=== PATIENT | female | born 1965 | race Two or more races ===

== ENCOUNTER → 2017-11-17 | Emergency (ER) | payer SELFPAY ==
[~2017-11-17] VITALS: Ht 160 cm; Wt 78.9 kg
[~2017-11-17] MED LIST: IBUPROFEN600 MG ORAL; LIDODERM700 M1 TOPIC; Methocarbamol 750mg tab ORAL ONE; ROBAXIN500 MG PO; traMADol 50mg tab ORAL ONE
[2017-11-17 12:45] VITALS: BP 130/75
--- NOTE | 2017-11-17 13:02 | Emergency Room Report ---
History of Present Illness General Chief Complaint: Lower Back Pain or Injury Source: Patient Present Illness HPI 52-year-old female presents emergency department complaining of 10 out of 10 in severity left-sided shoulder and flank/mid back pain status post mechanical slip and fall. She denies hitting her head she denies loss of consciousness. Patient denies bruising. Patient states pain is exacerbated upon bending forward slightly or with certain movements. Patient states that she gets a sharp pain that radiates down the left leg. Pain is also exacerbated with walking. Rest provides some relief. Denies dysuria, hematuria or frequency. Denies hx of frequent falls. Denies recent spinal procedures/injections, Fevers/ Chills, or hx of cancer. Denies numbness tingling or loss of sensation or gross motor movements of the extremities, incontinence of bowel or bladder. Denies CP , Palpitations, LOC, AMS, dizziness, Changes in Vision, weakness or a sudden severe headache. Allergies: Coded Allergies: No Known Allergies (Unverified , 11/17/17) Patient History Past Medical History: see triage record Past Surgical History: none Pertinent Family History: none Last Menstrual Period: NA Now: No Immunizations: UTD Reviewed Nursing Documentation: PMH: Agreed; PSxH: Agreed Nursing Documentation-PMH Past Medical History: No History, Except For Hx Diabetes: Yes - Pre Review of Systems All Other Systems: negative except mentioned in HPI Physical Exam Vital Signs Date Time Temp Pulse Resp B/P (MAP) Pulse Ox O2 Delivery O2 Flow Rate FiO2 11/17/17 12:34 98.2 72 18 130/75 99 Room Air 98.2 Sp02 EP Interpretation: reviewed, normal General Appearance: no apparent distress, alert, GCS 15, non-toxic Head: normocephalic, atraumatic Eyes: bilateral eye normal inspection, bilateral eye PERRL ENT: hearing grossly normal, normal voice Neck: full range of motion Respiratory: chest non-tender, lungs clear, normal breath sounds, speaking full sentences Cardiovascular #1: regular rate, rhythm, normal capillary refill Gastrointestinal: non tender, soft Genitourinary: normal inspection, no CVA tenderness Musculoskeletal: back normal, gait/station normal, normal range of motion, tender - TTP to musculature of the Left throacic paraspinal area, some midline TTp in T-spine, no midline neck or lumbar ttp. FROM. Pt. has TTp to the left trapezius radiating down to lateral shoulder , no obvious dislocation, no a/c step off. no clicking with ROM of the Left shoulder, some TTP laterally. Neurologic: alert, oriented x3, responsive, motor strength/tone normal, sensory intact, normal gait, speech normal, grossly normal Psychiatric: judgement/insight normal Skin: normal color, no rash, warm/dry, well hydrated Medical Decision Making PA Attestation Dr. rebolledo is my supervising Physician whom patient management has been discussed with. Diagnostic Impression: Primary Impression: Lumbar back sprain Qualified Codes: S33.5XXA - Sprain of ligaments of lumbar spine, initial encounter Additional Impressions: Strain of back Qualified Codes: S39.012A - Strain of muscle, fascia and tendon of lower back , initial encounter Muscle spasm of back Contusion of shoulder, left Qualified Codes: S40.012A - Contusion of left shoulder, initial encounter ER Course 52-year-old female presents emergency department complaining of 10 out of 10 in severity left-sided shoulder and flank/mid back pain status post mechanical slip and fall. She denies hitting her head she denies loss of consciousness. Patient denies bruising. Patient states pain is exacerbated upon bending forward slightly or with certain movements. Patient states that she gets a sharp pain that radiates down the left leg. Pain is also exacerbated with walking. Rest provides some relief. Denies dysuria, hematuria or frequency. Denies hx of frequent falls. Denies recent spinal procedures/injections, Fevers/ Chills, or hx of cancer. Denies numbness tingling or loss of sensation or gross motor movements of the extremities, incontinence of bowel or bladder. Denies CP , Palpitations, LOC, AMS, dizziness, Changes in Vision, weakness or a sudden severe headache. Ddx considered but are not limited to Fracture, dislocation, contusion, Sprain/ Strain/Spasm, Epidural abscess, Neoplastic mets,rotator cuff injury, a/c separation just to name a few. Vital signs: are WNL, pt. is afebrile H&PE are most consistent with musculoskeletal injury will perform imaging to r/ o fractures/dislocations. ORDERS: - X-ray's T spine (2 views) , and Left Shoulder ( 3 Views) - negative for fx , Dislocation, or significant soft tissue injury, per preliminary read in ED, and signed by MELODIE Chowdhury, my supervising physician has reviewed, and agrees with my interpretation. ED INTERVENTIONS: - Tramadol PO -Robaxin PO -Lidoderm patch TD DISCHARGE: At this time pt. is stable for d/c to home. Will provide printed patient care instructions, and any necessary prescriptions. Care plan and follow up instructions have been discussed with the patient prior to discharge. Other X-Ray Diagnostic Results Other X-Ray Diagnostic Results #1: X-Ray ordered: Left Shoulder # of Views/Limited Vs Complete: 3 View Indication: Pain EP Interpretation: Yes MELODIE Xray: Interpretation reviewed, by supervising MD, and agrees with findings. Interpretation: no dislocation, no soft tissue swelling, no fractures, nonspecific bowel gas Impression: No acute disease Electronically Signed by: Berta Chowdhury PA-C Other X-Ray Diagnostic Results #2: X-Ray ordered: T-Spine # of Views/Limited Vs Complete: 2 View Indication: Pain EP Interpretation: Yes MELODIE Xray: Interpretation reviewed, by supervising MD, and agrees with findings. Interpretation: no dislocation, no soft tissue swelling, no fractures Impression: No acute disease Electronically Signed by: Berta Chowdhury PA-C Last Vital Signs Date Time Temp Pulse Resp B/P (MAP) Pulse Ox O2 Delivery O2 Flow Rate FiO2 11/17/17 12:45 98.2 75 18 130/75 99 Room Air 98.2 Disposition: HOME, SELF-CARE Condition: Stable Scripts Ibuprofen* (MOTRIN*) 600 Mg Tablet 600 MG ORAL THREE TIMES A DAY, #20 TAB 0 Refills Prov: Berta Chowdhury 11/17/17 Lidocaine (Lidoderm) 1 Each Adh..patch 1 PATCH TOPIC DAILY, #30 PATCH 0 Refills Patch(es) may remain in place for up to 12 hours in any 24-hour period. Prov: Berta Chowdhury 11/17/17 Methocarbamol* (ROBAXIN*) 500 Mg Tablet 1000 MG PO TID, #42 TAB 0 Refills Prov: Berta Chowdhury 11/17/17 Patient Instructions: Contusion, [id number], Lumbosacral Strain Additional Instructions: Take medications as directed. Follow up with a Primary Care Provider in 3-5 days, even if your symptoms have resolved. --Please review list of primary care clinics, if you do not already have a primary care provider Return sooner to ED if new symptoms occur, or current symptoms become worse. Do not drink alcohol, drive, or operate heavy machinery while taking Robaxin as this may cause drowsiness. - Please note that this Emergency Department Report was dictated using [employer] transcriptionist technology software, occasionally this can lead to erroneous entry secondary to interpretation by the dictation equipment. Berta Chowdhury Nov 17, 2017 13:02
--- NOTE | 2017-11-17 13:38 | Diagnostic Imaging Report ---
Indication: Pain Technique: XRAY T Spine 2v Comparison: None Findings: Mild scoliosis of the lower thoracic/upper lumbar spine. No evidence of spondylolisthesis. No acute fracture. No compression fracture; vertebral body heights preserved. Minimal degenerative changes. Surgical clips project in the right upper quadrant. Imaged portions of the lungs grossly clear. Impression: No evidence of acute fracture or traumatic malalignment.
--- NOTE | 2017-11-17 13:41 | Diagnostic Imaging Report ---
Indication: Pain Technique: XRAY Shoulder Compl L Comparison: None Findings: No evidence of acute fracture or dislocation. Glenohumeral and acromioclavicular joints are preserved. Imaged portions of the left lung are clear. No radiopaque foreign body identified. Impression: No acute fracture or dislocation.
[2017-11-17 14:31] VITALS: BP 130/80
== END | disposition home or self-care (01) ==
LOC: EMR 14:41
DX: S33.5XXA Sprain of ligaments of lumbar spine, initial encounter (principal); S39.012A Strain of muscle, fascia and tendon of lower back, initial encounter; M62.830 Muscle spasm of back; S40.012A Contusion of left shoulder, initial encounter; W01.0XXA Fall on same level from slipping, tripping and stumbling without subsequent striking against object, initial encounter; Y92.009 Unspecified place in unspecified non-institutional (private) residence as the place of occurrence of the external cause; R73.03 Prediabetes
CPT/HCPCS: 72070; 99284

== ENCOUNTER 2017-12-05 19:50 | Inpatient (IN) | payer MEDICAID ==
[~2017-12-05] VITALS: Ht 165.1 cm; Wt 78.0 kg
[~2017-12-05 19:50] MED LIST changes: -Methocarbamol 750mg tab ORAL ONE; -traMADol 50mg tab ORAL ONE
[2017-12-05] MEDS ORDERED: UNOBMED (20:01)
[2017-12-05] MEDS ORDERED: Morphine Sulfate 4mg/ml Inj ONE (20:08)
[2017-12-05 20:13] LABS: BASOPHILS % (AUTO) 0.8 % (0.0-2.0); EOSINOPHILS % (AUTO) 0.9 % (0.0-3.0); HEMOGLOBIN 13.2 G/DL (12.0-16.0); LYMPHOCYTES % (AUTO) 32.5 % (20.0-45.0); MEAN CORPUSCULAR VOLUME 87 FL (80-99); MONOCYTES % (AUTO) 5.8 % (1.0-10.0); NEUTROPHILS % (AUTO) 59.9 % (45.0-75.0); PLATELET COUNT 201 K/UL (150-450); RED CELL DISTRIBUTION WIDTH 11.9 % (11.6-14.8); WHITE BLOOD COUNT 10.6 K/UL (4.8-10.8)
[2017-12-05] MEDS ORDERED: Morphine Sulfate 4mg/ml Inj IVP ONE ×2 (20:15→22:15)
[2017-12-05 20:18] VITALS: BP 133/83
[2017-12-05 20:22] LABS: ANION GAP 9 mmol/L (5-15); BLOOD UREA NITROGEN 13 mg/dL (7-18); CALCIUM 8.7 MG/DL (8.5-10.1); CARBON DIOXIDE 28 MMOL/L (21-32); CHLORIDE 103 MMOL/L (98-107); CREATININE 0.9 MG/DL (0.55-1.30); POTASSIUM 3.8 MMOL/L (3.5-5.1); SODIUM 140 MMOL/L (136-145)
--- NOTE | 2017-12-05 20:26 | Emergency Room Report ---
History of Present Illness General Chief Complaint: Abdominal Pain Source: Patient (Kvng Donaldson MD) Present Illness HPI Patient is a 52-year-old female who is presenting with right upper quadrant and epigastric pain with radiation to the back for approximately 3 hours. The patient states the pain is severe approximately 10 out of 10. She denies any worsening or alleviating factors. She denies having this pain before. She denies any prior abdominal surgeries. (Kvng Donaldson MD) Allergies: Coded Allergies: No Known Allergies (Unverified , 11/17/17) Patient History Past Medical History: DM Past Surgical History: none Pertinent Family History: none Social History: Denies: smoking, alcohol use, drug use Now: No (Kvng Donaldson MD) Nursing Documentation-[facility] Hx Diabetes: Yes (Kvng Donaldson MD) Review of Systems Constitutional: Denies: no symptoms, see HPI, chills, sweats, fever, malaise, weakness, other Eye: Denies: no symptoms, see HPI, eye pain, blurred vision, tearing, double vision, nose pain, nose congestion, acuity changes, discharge, other ENT: Denies: no symptoms, see HPI, ear pain, ear discharge, nose pain, nose congestion, throat pain, throat swelling, mouth pain, hearing loss, nasal discharge, other Respiratory: Denies: no symptoms, see HPI, cough, orthopnea, shortness of breath, stridor, wheezing, BONE, sputum, other Cardiovascular: Denies: no symptoms, see HPI, chest pain, edema, palpitations, syncope, PND, other Gastrointestinal: Reports: abdominal pain; Denies: no symptoms, see HPI, constipation, diarrhea, nausea, vomiting, melena, hematemesis, other Genitourinary: Denies: no symptoms, see HPI, discharge, dysuria, frequency, hematuria, pain, retention, incontinence, urgency, vag bleed/dc, other Musculoskeletal: Denies: no symptoms, see HPI, back pain, gout, joint pain, joint swelling, muscle pain, muscle stiffness, other Skin: Denies: no symptoms, see HPI, rash, change in color, change in hair/nails , dryness, lesions, other Neurological: Denies: no symptoms, see HPI, headache, numbness, paresthesia, seizure, tingling, tremors, focal weakness, syncope, dizziness, other Endocrine: Denies: no symptoms, see HPI, excessive sweating, flushing, intolerance to temperature, increased thirst, increased urine, unexplained weight loss, other (Kvng Donaldson MD) Physical Exam Vital Signs Date Time Temp Pulse Resp B/P (MAP) Pulse Ox O2 Delivery O2 Flow Rate FiO2 12/05/17 19:59 98.0 88 19 133/83 99 Room Air 98.1 Sp02 EP Interpretation: reviewed, normal General Appearance: non-toxic, severe distress Head: normocephalic, atraumatic Eyes: bilateral eye normal inspection, bilateral eye PERRL ENT: hearing grossly normal, normal pharynx, no angioedema, normal voice Neck: full range of motion, supple/symm/no masses Respiratory: chest non-tender, lungs clear, normal breath sounds, speaking full sentences Cardiovascular #1: regular rate, rhythm, no edema Cardiovascular #2: 2+ carotid (R), 2+ carotid (L), 2+ radial (R), 2+ radial (L) , 2+ dorsalis pedis (R), 2+ dorsalis pedis (L) Gastrointestinal: normal bowel sounds, soft, tenderness - RUQ ? Max, Epigastric Rectal: deferred Genitourinary: normal inspection, no CVA tenderness Musculoskeletal: back normal, gait/station normal, normal range of motion, non- tender, calf tenderness Neurologic: alert, oriented x3, responsive, motor strength/tone normal, sensory intact, speech normal Psychiatric: judgement/insight normal, memory normal, mood/affect normal, no suicidal/homicidal ideation Reflexes: 3+ bicep (R), 3+ bicep (L), 3+ tricep (R), 3+ tricep (L), 3+ knee (R) , 3+ knee (L) Skin: normal color, no rash, warm/dry, well hydrated Lymphatic: no adenopathy (Kvng Donaldson MD) Medical Decision Making Diagnostic Impression: Primary Impression: Intractable abdominal pain ER Course Patient's 52-year-old female presenting with upper abdominal pain mainly epigastric and right upper quadrant with radiation to the back. Upon initial examination the patient was writhing in pain however after 4 mg morphine, 4 mg Zofran, 1 mg Dilaudid the patient is now comfortable with no pain. I initially ordered an ultrasound of the right upper quadrant to look for gallstones. The technologist felt she saw multiple gallstones with a slightly thickened gallbladder wall and common bile duct however patient doesn't stated she had had her gallbladder removed in 2013. The technologist repeated her scan and was then equivocal about the results and therefore CT scan with IV contrast has been ordered. Pending results at this time. Laboratory Tests Test 12/05/17 19:55 White Blood Count 10.6 K/UL (4.8-10.8) Red Blood Count 4.50 M/UL (4.20-5.40) Hemoglobin 13.2 G/DL (12.0-16.0) Hematocrit 39.0 % (37.0-47.0) Mean Corpuscular Volume 87 FL (80-99) Mean Corpuscular Hemoglobin 29.3 PG (27.0-31.0) Mean Corpuscular Hemoglobin Concent 33.8 G/DL (32.0-36.0) Red Cell Distribution Width 11.9 % (11.6-14.8) Platelet Count 201 K/UL (150-450) Mean Platelet Volume 9.9 FL (6.5-10.1) Neutrophils (%) (Auto) 59.9 % (45.0-75.0) Lymphocytes (%) (Auto) 32.5 % (20.0-45.0) Monocytes (%) (Auto) 5.8 % (1.0-10.0) Eosinophils (%) (Auto) 0.9 % (0.0-3.0) Basophils (%) (Auto) 0.8 % (0.0-2.0) Sodium Level 140 MMOL/L (136-145) Potassium Level 3.8 MMOL/L (3.5-5.1) Chloride Level 103 MMOL/L (98-107) Carbon Dioxide Level 28 MMOL/L (21-32) Anion Gap 9 mmol/L (5-15) Blood Urea Nitrogen 13 mg/dL (7-18) Creatinine 0.9 MG/DL (0.55-1.30) Estimate Glomerular Filtration Rate > 60 mL/min (>60) Glucose Level 187 MG/DL (74-106) H Calcium Level 8.7 MG/DL (8.5-10.1) Total Bilirubin 0.3 MG/DL (0.2-1.0) Aspartate Amino Transferase (AST) 36 U/L (15-37) Alanine Aminotransferase (ALT) 31 U/L (12-78) Alkaline Phosphatase 101 U/L (46-116) Total Protein 7.8 G/DL (6.4-8.2) Albumin 3.8 G/DL (3.4-5.0) Globulin 4.0 g/dL Albumin/Globulin Ratio 0.9 (1.0-2.7) L Lipase 150 U/L (73-393) (Kvng Donaldson MD) ER Course Please refer to the initial note for the history exam and presentation After initial dosing of morphine patient had repeat pain Dilaudid had been given On reevaluation patient is still complaining of discomfort Initial ultrasound reveals a cholecystectomy, mildly dilated common bile duct is noted. Given the patient's continued discomfort CT imaging was done which also did not show any obvious acute pathology patient continues to have discomfort and at this time will require further inpatient care Labs Test 12/05/17 19:55 12/05/17 22:32 White Blood Count 10.6 K/UL (4.8-10.8) Red Blood Count 4.50 M/UL (4.20-5.40) Hemoglobin 13.2 G/DL (12.0-16.0) Hematocrit 39.0 % (37.0-47.0) Mean Corpuscular Volume 87 FL (80-99) Mean Corpuscular Hemoglobin 29.3 PG (27.0-31.0) Mean Corpuscular Hemoglobin Concent 33.8 G/DL (32.0-36.0) Red Cell Distribution Width 11.9 % (11.6-14.8) Platelet Count 201 K/UL (150-450) Mean Platelet Volume 9.9 FL (6.5-10.1) Neutrophils (%) (Auto) 59.9 % (45.0-75.0) Lymphocytes (%) (Auto) 32.5 % (20.0-45.0) Monocytes (%) (Auto) 5.8 % (1.0-10.0) Eosinophils (%) (Auto) 0.9 % (0.0-3.0) Basophils (%) (Auto) 0.8 % (0.0-2.0) Sodium Level 140 MMOL/L (136-145) Potassium Level 3.8 MMOL/L (3.5-5.1) Chloride Level 103 MMOL/L (98-107) Carbon Dioxide Level 28 MMOL/L (21-32) Anion Gap 9 mmol/L (5-15) Blood Urea Nitrogen 13 mg/dL (7-18) Creatinine 0.9 MG/DL (0.55-1.30) Estimat Glomerular Filtration Rate > 60 mL/min (>60) Glucose Level 187 MG/DL (74-106) Calcium Level 8.7 MG/DL (8.5-10.1) Total Bilirubin 0.3 MG/DL (0.2-1.0) Aspartate Amino Transf (AST/SGOT) 36 U/L (15-37) Alanine Aminotransferase (ALT/SGPT) 31 U/L (12-78) Alkaline Phosphatase 101 U/L (46-116) Total Protein 7.8 G/DL (6.4-8.2) Albumin 3.8 G/DL (3.4-5.0) Globulin 4.0 g/dL Albumin/Globulin Ratio 0.9 (1.0-2.7) Lipase 150 U/L (73-393) Urine Color Pale yellow Urine Appearance Clear Urine pH 8 (4.5-8.0) Urine Specific [place] 1.010 (1.005-1.035) Urine Protein Negative (NEGATIVE) Urine Glucose (UA) Negative (NEGATIVE) Urine Ketones 1+ (NEGATIVE) Urine Occult Blood Negative (NEGATIVE) Urine Nitrite Negative (NEGATIVE) Urine Bilirubin Negative (NEGATIVE) Urine Urobilinogen Normal MG/DL (0.0-1.0) Urine Leukocyte Esterase Negative (NEGATIVE) (Shon Stock DO) CT/MRI/US Diagnostic Results CT/MRI/US Diagnostic Results : Impression Abdominal ultrasound: Previous cholecystectomy, mildly dilated common bile duct CT abdomen pelvis hepatic cytosis, no other obvious acute pathology (Shon Stock DO) Last Vital Signs Date Time Temp Pulse Resp B/P (MAP) Pulse Ox O2 Delivery O2 Flow Rate FiO2 12/05/17 20:18 98.0 19 133/83 99 Room Air 98.0 12/05/17 19:59 88 (Kvng Donaldson MD) Status: improved (Shon Stock DO) Disposition: ADMITTED INPATIENT Condition: Serious Kvng Donaldson MD Dec 05, 2017 20:26 Shon Stock DO Dec 05, 2017 23:13
[2017-12-05 20:28] LABS: ALANINE AMINOTRANSFERASE 31 U/L (12-78); ALBUMIN 3.8 G/DL (3.4-5.0); ALBUMIN/GLOBULIN RATIO 0.9 (1.0-2.7); ALKALINE PHOSPHATASE 101 U/L (46-116); ASPARTATE AMINO TRANSFERASE 36 U/L (15-37); BILIRUBIN,TOTAL 0.3 MG/DL (0.2-1.0)
[2017-12-05] MEDS ORDERED: HYDROmorphone 1mg/ml Carpuject IVP ONE (20:45)
[2017-12-05] MEDS ORDERED: Isovue-300 100ml vial INJ PRN (21:30)
[2017-12-05 22:17] VITALS: BP 136/76
[2017-12-05 22:42] LABS: APPEARANCE,URINE CLEAR; BILIRUBIN, URINE NEGATIVE (NEGATIVE); COLOR,URINE PALE YELLOW; GLUCOSE, URINE (UA) NEGATIVE (NEGATIVE); KETONES,URINE 1+ (NEGATIVE); LEUKOCYTE ESTERASE ,URINE NEGATIVE (NEGATIVE); NITRITE,URINE NEGATIVE (NEGATIVE); PH,URINE 8 (4.5-8.0); PROTEIN,URINE NEGATIVE (NEGATIVE); UROBILINOGEN,URINE NORMAL MG/DL (0.0-1.0)
[2017-12-05] MEDS ORDERED: Mylanta II UD 30ml ORAL ONE (23:15)
[2017-12-05] MEDS ORDERED: Dicyclomine HCl 10mg/5ml oral soln ORAL ONE (23:15)
[2017-12-05] MEDS ORDERED: Lidocaine 2% Visc 15ml soln ORAL ONE (23:15)
[2017-12-05 23:30] VITALS: BP 131/63
[2017-12-06] MEDS ORDERED: HYDROmorphone 1mg/ml Carpuject IVP PRN (02:15)
[2017-12-06] MEDS ORDERED: Sodium Chloride 500ML 550 ML IV SCH (02:15)
[2017-12-06] MEDS ORDERED: Morphine Sulfate 2mg/ml Inj IVP PRN (02:15)
[2017-12-06] MEDS ORDERED: HYDROmorphone 1mg/ml Carpuject ONE (05:01)
[2017-12-06] MEDS: Hydromorphone 0.5mg/0.5ml inj IVP PRN ×2 (05:06→05:08)
[2017-12-06 09:00] VITALS: BP 126/72
--- NOTE | 2017-12-06 10:41 | Diagnostic Imaging Report ---
Clinical Indication: Right upper quadrant abdominal pain Technique: No oral contrast utilized, per emergency room physician request IV administration nonionic contrast. Venous phase spiral acquisition obtained through the abdomen and pelvis. Multiplanar reconstructions were generated. Total dose length product 905 mGycm. CTDIvol(s) 16.38 mGy. Dose reduction achieved using automated exposure control Comparison: none Findings: The appendix is normal. There is no evidence of diverticulosis or diverticulitis. No small bowel distention. No free or loculated intraperitoneal air or fluid is evident. The distal esophagus, stomach, duodenum are unremarkable. The liver is diffusely hypoattenuating, consistent with fatty change. There are cholecystectomy clips. No biliary ductal dilatation. The pancreas, spleen, adrenals, kidneys are all unremarkable. No retroperitoneal or mesenteric mass or adenopathy. No pelvic mass or adenopathy. The included lung bases demonstrate diffuse groundglass opacity. The heart is upper limits normal in size. The bones are unremarkable. Impression: No acute abnormality Prior cholecystectomy Fatty liver This agrees with the preliminary interpretation provided overnight by [facility] teleradiology service. The CT scanner at [facility] is accredited by the [employer] and the scans are performed using protocols designed to limit radiation exposure to as low as reasonably achievable to attain images of sufficient resolution adequate for diagnostic evaluation.
[2017-12-06] MEDS: Piperacillin/Tazobactam 3.375 GM in D5W 110 ML IVPB SCH ×2 (11:44→18:01)
--- NOTE | 2017-12-06 12:03 | Diagnostic Imaging Report ---
Indication: Abdominal pain, history of cholecystectomy Technique: Turcios-scale and duplex images of the upper abdomen were obtained Comparison: No comparison sonograms. Reference made to CT abdomen and pelvis performed earlier the same day Findings: Gallbladder is surgically absent. Common bile duct measures 8 mm in diameter. No intrahepatic biliary ductal dilatation. Liver demonstrates diffusely increased echogenicity, consistent with diffuse hepatocellular disease, most likely fatty change. It is mildly enlarged. Portal vein and hepatic veins are patent. Pancreas is unremarkable. Spleen is unremarkable. Left kidney measures 11 cm in length. Right kidney measures 11 cm length. Both kidneys demonstrate normal echogenicity. There is no hydronephrosis. No focal abnormality . Abdominal aorta is partially obscured by bowel gas, visualized portions are non-aneurysmal . Impression: Surgically absent gallbladder. Mildly ectatic common bile duct, most likely related to postcholecystectomy state, but downstream obstruction not completely excludable although none seen on recent CT scan. Correlation with liver function tests is recommended Mildly enlarged fatty liver Note suboptimal visualization of the distal abdominal aorta
--- NOTE | 2017-12-06 13:24 | Consultation ---
History of Present Illness General Date patient seen: Dec 06, 2017 Chief Complaint: Abdominal Pain Reason for Consultation: abdominal pain Present Illness HPI 52F hx of cholecystectomy some time ago presents with acute onset of ruq/epi abdominal pain. no radiation. nausea but no emesis. no fever or chills. in ED US and CT okay as well as labs but patient could not be comfortable and admitted for intractable pain. surgery called to evaluate. patient seen , chart reviewed, patient examined. Allergies: Coded Allergies: No Known Allergies (Unverified , 11/17/17) Medication History Scheduled Ibuprofen* (Motrin*), 600 MG ORAL THREE TIMES A DAY Lidocaine (Lidoderm), 1 PATCH TOPIC DAILY Methocarbamol* (Robaxin*), 1,000 MG PO TID Miscellaneous Medications Unable to Obtain Medications (Unable To Obtain Meds), (Reported) Patient History History Provided By: Patient, Medical Record, PMD Healthcare decision maker Resuscitation status Full Code Advanced Directive on File Past Medical/Surgical History Past Medical/Surgical History: (1) History of laparoscopic cholecystectomy (2) Intractable abdominal pain Review of Systems All Other Systems: negative except mentioned in HPI Physical Exam General Appearance: no apparent distress Lines, tubes and drains: peripheral HEENT: normocephalic, mucous membranes moist Neck: normal inspection Respiratory/Chest: normal breath sounds, no respiratory distress, no accessory muscle use Cardiovascular/Chest: normal rate Abdomen: normal bowel sounds, non tender, soft, no organomegaly, no mass Extremities: non-tender, normal inspection Skin Exam: normal pigmentation Neurologic: alert, oriented x 3 Last 24 Hour Vital Signs Date Time Temp Pulse Resp B/P (MAP) Pulse Ox O2 Delivery O2 Flow Rate FiO2 12/06/17 09:12 Room Air 12/06/17 09:00 98.1 72 20 126/72 (90) 97 98.1 12/06/17 06:22 Room Air 12/06/17 00:06 98.0 19 131/63 99 Room Air 98.0 12/05/17 23:30 98.0 19 131/63 99 Room Air 98.0 12/05/17 22:17 98.0 19 136/76 99 Room Air 98.0 12/05/17 22:10 98.0 12/05/17 20:56 98.0 12/05/17 20:18 98.0 19 133/83 99 Room Air 98.0 12/05/17 20:15 98.0 12/05/17 19:59 98.0 88 19 133/83 99 Room Air 98.1 Intake and Output 12/05/17 12/06/17 19:00 07:00 Intake Total 240 ml Balance 240 ml Intake Oral 240 ml # Voids 1 Laboratory Tests Test 12/05/17 19:55 12/05/17 22:32 White Blood Count 10.6 K/UL (4.8-10.8) Red Blood Count 4.50 M/UL (4.20-5.40) Hemoglobin 13.2 G/DL (12.0-16.0) Hematocrit 39.0 % (37.0-47.0) Mean Corpuscular Volume 87 FL (80-99) Mean Corpuscular Hemoglobin 29.3 PG (27.0-31.0) Mean Corpuscular Hemoglobin Concent 33.8 G/DL (32.0-36.0) Red Cell Distribution Width 11.9 % (11.6-14.8) Platelet Count 201 K/UL (150-450) Mean Platelet Volume 9.9 FL (6.5-10.1) Neutrophils (%) (Auto) 59.9 % (45.0-75.0) Lymphocytes (%) (Auto) 32.5 % (20.0-45.0) Monocytes (%) (Auto) 5.8 % (1.0-10.0) Eosinophils (%) (Auto) 0.9 % (0.0-3.0) Basophils (%) (Auto) 0.8 % (0.0-2.0) Sodium Level 140 MMOL/L (136-145) Potassium Level 3.8 MMOL/L (3.5-5.1) Chloride Level 103 MMOL/L (98-107) Carbon Dioxide Level 28 MMOL/L (21-32) Anion Gap 9 mmol/L (5-15) Blood Urea Nitrogen 13 mg/dL (7-18) Creatinine 0.9 MG/DL (0.55-1.30) Estimat Glomerular Filtration Rate > 60 mL/min (>60) Glucose Level 187 MG/DL (74-106) H Calcium Level 8.7 MG/DL (8.5-10.1) Total Bilirubin 0.3 MG/DL (0.2-1.0) Aspartate Amino Transf (AST/SGOT) 36 U/L (15-37) Alanine Aminotransferase (ALT/SGPT) 31 U/L (12-78) Alkaline Phosphatase 101 U/L (46-116) Total Protein 7.8 G/DL (6.4-8.2) Albumin 3.8 G/DL (3.4-5.0) Globulin 4.0 g/dL Albumin/Globulin Ratio 0.9 (1.0-2.7) L Lipase 150 U/L (73-393) Urine Color Pale yellow Urine Appearance Clear Urine pH 8 (4.5-8.0) Urine Specific [place] 1.010 (1.005-1.035) Urine Protein Negative (NEGATIVE) Urine Glucose (UA) Negative (NEGATIVE) Urine Ketones 1+ (NEGATIVE) H Urine Occult Blood Negative (NEGATIVE) Urine Nitrite Negative (NEGATIVE) Urine Bilirubin Negative (NEGATIVE) Urine Urobilinogen Normal MG/DL (0.0-1.0) Urine Leukocyte Esterase Negative (NEGATIVE) Height (Feet): 5 Height (Inches): 5.00 Weight (Pounds): 176 Medications Current Medications Medications (Trade) Dose Ordered Sig/Lee Route PRN Reason Start Time Stop Time Status Last Admin Dose Admin Hydromorphone HCl (Dilaudid) 1 mg Q4H PRN IVP Severe Pain (Pain Scale 7-10) 12/06/17 03:30 12/13/17 03:29 12/06/17 05:08 Iopamidol (Isovue-300 100ml) 100 ml NOW PRN INJ Radiology Procedure 12/05/17 21:30 Morphine Sulfate (Morphine Sulfate) 2 mg Q4H PRN IVP Moderate Pain (Pain Scale 4-6) 12/06/17 04:30 12/13/17 04:29 Ondansetron HCl (Zofran) 4 mg Q6H PRN IVP Nausea & Vomiting 12/06/17 04:30 01/05/18 04:29 12/06/17 05:04 Piperacillin Sod/ Tazobactam Sod 3.375 gm/Dextrose 110 ml @ 27.5 mls/hr Q8H IVPB 12/06/17 11:00 12/13/17 10:59 12/06/17 11:44 Sodium Chloride 1,000 ml @ 75 mls/hr [id number] IV 12/06/17 02:30 01/05/18 02:29 12/06/17 04:01 Assessment/Plan Problem List: (1) Intractable abdominal pain Assessment & Plan: 52F with RUQ/ epigastric pain. no evidence of retained stone or biliary nature. possible gastritis? on exam benign. CT and US okay. labs okay. -no acute surgical intervention planned -diet as tolerated -appreciate GI input. thank you for this consultation. will follow with recs. ICD Codes: R10.9 - Unspecified abdominal pain SNOMED: 65305083, [id number] Status: stable RojeliotoyelenaJama vuya Dec 06, 2017 13:24
--- NOTE | 2017-12-06 14:15 | History and Physical Report ---
DATE OF ADMISSION: 12/05/2017 HISTORY OF PRESENT ILLNESS: This is a 52-year-old female who came to the hospital with right upper quadrant pain. She also report epigastric pain in the region of the back yesterday. The patient states she has previously had a cholecystectomy many years ago. The patient is seen and worked up and found to have evidence of probable common bile duct stone. Imaging studies were obtained. Results of which are not available at this point in time. PAST MEDICAL HISTORY: Notable for diabetes mellitus. PREVIOUS SURGERIES: Cholecystectomy. REVIEW OF SYSTEMS: Denies any headaches, hematemesis, melena, hematochezia, or weight loss. PHYSICAL EXAMINATION: VITAL SIGNS: Blood pressure 130/80, heart rate 84, respiratory rate , afebrile. GENERAL: Reveals an obese female. HEENT: Unremarkable. LUNGS: Clear, breath sounds bilaterally. ABDOMEN: Soft with right upper quadrant discomfort. EXTREMITIES: There is no edema. IMAGING STUDIES: Ultrasound showed dilated common bile duct. CT has been obtained, results of which are pending. Lab testing shows normal CBC. Glucose 187. BMP is normal. CMP is normal. Urinalysis is negative. IMPRESSION: 1. Right upper quadrant pain, possible choledocholithiasis. 2. Probable previous cholecystectomy. 3. Diabetes mellitus. DISCUSSION: We will admit to the hospital. At this time, I will keep her NPO, provide pain control. IV fluids. Empiric antibiotics. We will consult Gastroenterology and GI. We will follow carefully. Jeff Barney M.D. DR: BRIAN JOB#: [id number] CC:
--- NOTE | 2017-12-06 14:42 | GI Initial Consult Note ---
History of Present Illness General Date patient seen: Dec 06, 2017 Time patient seen: 15:58 Reason for Hospitalization: Abdominal Pain Referring physician: NIR GIBSON Reason for Consultation: abdominal pain Present Illness HPI Patient is a 52-year-old female who is presenting with right upper quadrant and epigastric pain with radiation to the back for approximately 3 hours. The patient states the pain is severe approximately 10 out of 10. She denies any worsening or alleviating factors. She denies having this pain before. She denies any prior abdominal surgeries. GI consulted for abdominal pain. Pt seen, awake A&Ox4 NAD with no active s/sx of N/V/D. Had an episode of emesis earlier. C/o of epigastric pain with radiation to the RUQ. Tolerable at this time, but still present. Abdomen is soft, non distended and tender to touch. Pt states this is the first time she' s had this pain. No history of endoscopy / colonoscopy. Original concerns for CBD dilation, however, CT and US are mainly unremarkable. No leukocytosis and no anemia. No lipase elevation. Home Meds Active Scripts Ibuprofen* (MOTRIN*) 600 Mg Tablet, 600 MG ORAL THREE TIMES A DAY, #20 TAB 0 Refills Prov:Berta Chowdhury 11/17/17 Lidocaine (Lidoderm) 1 Each Adh..patch, 1 PATCH TOPIC DAILY, #30 PATCH 0 Refills Patch(es) may remain in place for up to 12 hours in any 24-hour period. Prov:Berta Chowdhury 11/17/17 Methocarbamol* (ROBAXIN*) 500 Mg Tablet, 1000 MG PO TID, #42 TAB 0 Refills Prov:Berta Chowdhury 11/17/17 Reported Medications Unable to Obtain Medications (UNABLE TO OBTAIN MEDS) 1 [facility] 12/05/17 Med list reviewed/reconciled: Yes Allergies: Coded Allergies: No Known Allergies (Unverified , 11/17/17) Patient History History Provided By: Patient, Family Member, Medical Record [facility] Narrative Past Medical History: DM Past Surgical History: none Pertinent Family History: none Social History: Denies: smoking, alcohol use, drug use Now: No Pertinent Family History: none Social History: Denies: smoking, alcohol use, drug use, other Review of Systems All Other Systems: negative except mentioned in HPI Physical Exam Vital Signs Date Time Temp Pulse Resp B/P (MAP) Pulse Ox O2 Delivery O2 Flow Rate FiO2 12/05/17 19:59 98.0 88 19 133/83 99 Room Air 98.1 Sp02 EP Interpretation: reviewed, normal Labs Laboratory Tests Test 12/05/17 19:55 12/05/17 22:32 White Blood Count 10.6 K/UL (4.8-10.8) Red Blood Count 4.50 M/UL (4.20-5.40) Hemoglobin 13.2 G/DL (12.0-16.0) Hematocrit 39.0 % (37.0-47.0) Mean Corpuscular Volume 87 FL (80-99) Mean Corpuscular Hemoglobin 29.3 PG (27.0-31.0) Mean Corpuscular Hemoglobin Concent 33.8 G/DL (32.0-36.0) Red Cell Distribution Width 11.9 % (11.6-14.8) Platelet Count 201 K/UL (150-450) Mean Platelet Volume 9.9 FL (6.5-10.1) Neutrophils (%) (Auto) 59.9 % (45.0-75.0) Lymphocytes (%) (Auto) 32.5 % (20.0-45.0) Monocytes (%) (Auto) 5.8 % (1.0-10.0) Eosinophils (%) (Auto) 0.9 % (0.0-3.0) Basophils (%) (Auto) 0.8 % (0.0-2.0) Sodium Level 140 MMOL/L (136-145) Potassium Level 3.8 MMOL/L (3.5-5.1) Chloride Level 103 MMOL/L (98-107) Carbon Dioxide Level 28 MMOL/L (21-32) Anion Gap 9 mmol/L (5-15) Blood Urea Nitrogen 13 mg/dL (7-18) Creatinine 0.9 MG/DL (0.55-1.30) Estimat Glomerular Filtration Rate > 60 mL/min (>60) Glucose Level 187 MG/DL (74-106) H Calcium Level 8.7 MG/DL (8.5-10.1) Total Bilirubin 0.3 MG/DL (0.2-1.0) Aspartate Amino Transf (AST/SGOT) 36 U/L (15-37) Alanine Aminotransferase (ALT/SGPT) 31 U/L (12-78) Alkaline Phosphatase 101 U/L (46-116) Total Protein 7.8 G/DL (6.4-8.2) Albumin 3.8 G/DL (3.4-5.0) Globulin 4.0 g/dL Albumin/Globulin Ratio 0.9 (1.0-2.7) L Lipase 150 U/L (73-393) Urine Color Pale yellow Urine Appearance Clear Urine pH 8 (4.5-8.0) Urine Specific [place] 1.010 (1.005-1.035) Urine Protein Negative (NEGATIVE) Urine Glucose (UA) Negative (NEGATIVE) Urine Ketones 1+ (NEGATIVE) H Urine Occult Blood Negative (NEGATIVE) Urine Nitrite Negative (NEGATIVE) Urine Bilirubin Negative (NEGATIVE) Urine Urobilinogen Normal MG/DL (0.0-1.0) Urine Leukocyte Esterase Negative (NEGATIVE) General Appearance: well appearing, no apparent distress, alert, obese Head: normocephalic EENT: PERRL/EOMI, normal ENT inspection Neck: supple Respiratory: normal breath sounds, no respiratory distress Cardiovascular: normal rate Gastrointestinal: normal inspection, non tender, soft, normal bowel sounds, non -distended Rectal: deferred Genitourinary: no CVA tenderness Musculoskeletal: normal inspection, back normal Neurologic: normal inspection, alert, oriented x3, responsive Psychiatric: normal inspection, judgement/insight normal, memory normal Skin: normal inspection, normal color, no rash, warm/dry, palpation normal, well hydrated Lymphatic: normal inspection, no adenopathy Current Medications Current Medications Medications (Trade) Dose Ordered Sig/Lee Route PRN Reason Start Time Stop Time Status Last Admin Dose Admin Hydromorphone HCl (Dilaudid) 1 mg Q4H PRN IVP Severe Pain (Pain Scale 7-10) 12/06/17 03:30 12/13/17 03:29 12/06/17 05:08 Iopamidol (Isovue-300 100ml) 100 ml NOW PRN INJ Radiology Procedure 12/05/17 21:30 Morphine Sulfate (Morphine Sulfate) 2 mg Q4H PRN IVP Moderate Pain (Pain Scale 4-6) 12/06/17 04:30 12/13/17 04:29 Ondansetron HCl (Zofran) 4 mg Q6H PRN IVP Nausea & Vomiting 12/06/17 04:30 01/05/18 04:29 12/06/17 05:04 Pantoprazole (Protonix) 40 mg ACBREAKFAST ORAL 12/06/17 15:00 01/05/18 14:59 Piperacillin Sod/ Tazobactam Sod 3.375 gm/Dextrose 110 ml @ 27.5 mls/hr Q8H IVPB 12/06/17 11:00 12/13/17 10:59 12/06/17 11:44 Sodium Chloride 1,000 ml @ 75 mls/hr [id number] IV 12/06/17 02:30 01/05/18 02:29 12/06/17 04:01 GI: Plan Problems: (1) GERD (gastroesophageal reflux disease) (2) Intractable abdominal pain (3) History of laparoscopic cholecystectomy Plan abdominal U/S reviewed >> -Surgically absent gallbladder >> most likely the cause of CBD dilation -Mildly ectatic common bile duct. CTAP negative no evidence of biliary obstruction symptomatic treatment adv diet as tolerated pain mgmt ppi zofran prn bowel regime outpatient GI procedures Discussed with Dr. Krueger. Thank you for this patient referral, we will follow. The patient was seen and examined at bedside and all new and available data was reviewed in the patients chart. I agree with the above findings, impression and plan. (Patient seen earlier today. Signature stamp does not reflect patient encounter time.). - MD Sharon Thao,[facility] [employer]OR OPERATOR Dec 06, 2017 14:42
[2017-12-06 21:00] VITALS: BP 121/73
[2017-12-07] VITALS: BP 123/68
[2017-12-07] MEDS: Piperacillin/Tazobactam 3.375 GM in D5W 110 ML IVPB SCH ×3 (02:56→18:29)
[2017-12-07 04:00] VITALS: BP 129/73
[2017-12-07] MEDS: Hydromorphone 0.5mg/0.5ml inj IVP PRN ×2 (04:11→13:24)
--- NOTE | 2017-12-07 08:59 | Pulmonology Progress Note ---
Assessment/Plan Assessment/Plan IMPRESSION: 1. Right upper quadrant pain, possible choledocholithiasis. Now resolved. 2. Probable previous cholecystectomy. 3. Diabetes mellitus. DISCUSSION: Seen by Gastroenterology and GI. No CBD dilataion; surgically absent GB Pain resolved. Will advance diet; dc home if diet tolerated. Subjective Interval Events: Better Constitutional: Reports: no symptoms HEENT: Repors: no symptoms Respiratory: Reports: no symptoms Cardiovascular: Reports: no symptoms Gastrointestinal/Abdominal: Reports: no symptoms Allergies: Coded Allergies: No Known Allergies (Unverified , 11/17/17) Objective Last 24 Hour Vital Signs Date Time Temp Pulse Resp B/P (MAP) Pulse Ox O2 Delivery O2 Flow Rate FiO2 12/07/17 04:00 98.6 61 20 129/73 (91) 97 98.6 12/07/17 00:00 97.8 64 18 123/68 (86) 97 97.8 12/06/17 21:00 98.1 67 18 121/73 (89) 98 98.1 12/06/17 21:00 Room Air 12/06/17 09:12 Room Air 12/06/17 09:00 98.1 72 20 126/72 (90) 97 98.1 Intake and Output 12/06/17 12/07/17 19:00 07:00 Intake Total 282.58 ml 1275.0 ml Balance 282.58 ml 1275.0 ml Intake Oral 200 ml 360 ml IV Total 82.58 ml 915.0 ml # Voids 1 2 General Appearance: no acute distress HEENT: normocephalic Respiratory/Chest: chest wall non-tender Cardiovascular: normal peripheral pulses, normal rate Current Medications Medications (Trade) Dose Ordered Sig/Lee Route PRN Reason Start Time Stop Time Status Last Admin Dose Admin Hydromorphone HCl (Dilaudid) 1 mg Q4H PRN IVP Severe Pain (Pain Scale 7-10) 12/06/17 03:30 12/13/17 03:29 12/07/17 04:11 Iopamidol (Isovue-300 100ml) 100 ml NOW PRN INJ Radiology Procedure 12/05/17 21:30 Morphine Sulfate (Morphine Sulfate) 2 mg Q4H PRN IVP Moderate Pain (Pain Scale 4-6) 12/06/17 04:30 12/13/17 04:29 Ondansetron HCl (Zofran) 4 mg Q6H PRN IVP Nausea & Vomiting 12/06/17 04:30 01/05/18 04:29 12/07/17 04:11 Pantoprazole (Protonix) 40 mg ACBREAKFAST ORAL 12/06/17 15:00 01/05/18 14:59 12/07/17 06:01 Piperacillin Sod/ Tazobactam Sod 3.375 gm/Dextrose 110 ml @ 27.5 mls/hr Q8H IVPB 12/06/17 11:00 12/13/17 10:59 12/07/17 02:56 Sodium Chloride 1,000 ml @ 75 mls/hr [id number] IV 12/06/17 02:30 01/05/18 02:29 12/07/17 06:01 Jeff Barney MD Dec 07, 2017 08:59
[2017-12-07 09:57] LABS: BASOPHILS % (AUTO) 1.1 % (0.0-2.0); HEMATOCRIT 38.4 % (37.0-47.0); HEMOGLOBIN 12.6 G/DL (12.0-16.0); LYMPHOCYTES % (AUTO) 36.9 % (20.0-45.0); MEAN CORPUSCULAR VOLUME 86 FL (80-99); MONOCYTES % (AUTO) 6.8 % (1.0-10.0); NEUTROPHILS % (AUTO) 53.2 % (45.0-75.0); PLATELET COUNT 166 K/UL (150-450); RED BLOOD COUNT 4.45 M/UL (4.20-5.40); RED CELL DISTRIBUTION WIDTH 11.3 % (11.6-14.8); WHITE BLOOD COUNT 3.7 K/UL (4.8-10.8)
[2017-12-07 10:35] LABS: ANION GAP 6 mmol/L (5-15); BLOOD UREA NITROGEN 8 mg/dL (7-18); CALCIUM 8.4 MG/DL (8.5-10.1); CARBON DIOXIDE 29 MMOL/L (21-32); CHLORIDE 103 MMOL/L (98-107); CREATININE 0.8 MG/DL (0.55-1.30); POTASSIUM 4.3 MMOL/L (3.5-5.1); SODIUM 138 MMOL/L (136-145)
[2017-12-07 12:24] VITALS: BP 131/77
--- NOTE | 2017-12-07 13:30 | General Surgery Progress Note ---
General Surgery-Progress Note Subjective Symptoms: improved, pain absent, tolerating diet, passing flatus Objective Last 24 Hour Vital Signs Date Time Temp Pulse Resp B/P (MAP) Pulse Ox O2 Delivery O2 Flow Rate FiO2 12/07/17 13:24 97.3 12/07/17 12:24 97.3 63 18 131/77 (95) 97.3 12/07/17 09:29 Room Air 12/07/17 04:00 98.6 61 20 129/73 (91) 97 98.6 12/07/17 00:00 97.8 64 18 123/68 (86) 97 97.8 12/06/17 21:00 98.1 67 18 121/73 (89) 98 98.1 12/06/17 21:00 Room Air I&O Intake and Output 12/06/17 12/07/17 19:00 07:00 Intake Total 282.58 ml 1275.0 ml Balance 282.58 ml 1275.0 ml Intake Oral 200 ml 360 ml IV Total 82.58 ml 915.0 ml # Voids 1 2 Drains: none Cardiovascular: RSR Respiratory: clear Abdomen: soft, flat, non-tender, present bowel sounds Extremities: no cyanosis Laboratory Tests Test 12/07/17 09:05 White Blood Count 3.7 K/UL (4.8-10.8) L Red Blood Count 4.45 M/UL (4.20-5.40) Hemoglobin 12.6 G/DL (12.0-16.0) Hematocrit 38.4 % (37.0-47.0) Mean Corpuscular Volume 86 FL (80-99) Mean Corpuscular Hemoglobin 28.3 PG (27.0-31.0) Mean Corpuscular Hemoglobin Concent 32.8 G/DL (32.0-36.0) Red Cell Distribution Width 11.3 % (11.6-14.8) L Platelet Count 166 K/UL (150-450) Mean Platelet Volume 9.3 FL (6.5-10.1) Neutrophils (%) (Auto) 53.2 % (45.0-75.0) Lymphocytes (%) (Auto) 36.9 % (20.0-45.0) Monocytes (%) (Auto) 6.8 % (1.0-10.0) Eosinophils (%) (Auto) 2.0 % (0.0-3.0) Basophils (%) (Auto) 1.1 % (0.0-2.0) Sodium Level 138 MMOL/L (136-145) Potassium Level 4.3 MMOL/L (3.5-5.1) Chloride Level 103 MMOL/L (98-107) Carbon Dioxide Level 29 MMOL/L (21-32) Anion Gap 6 mmol/L (5-15) Blood Urea Nitrogen 8 mg/dL (7-18) Creatinine 0.8 MG/DL (0.55-1.30) Estimat Glomerular Filtration Rate > 60 mL/min (>60) Glucose Level 207 MG/DL (74-106) H Calcium Level 8.4 MG/DL (8.5-10.1) L Plan Problems: (1) Intractable abdominal pain Assessment & Plan: 52F with RUQ/ epigastric pain. no evidence of retained stone or biliary nature. possible gastritis? on exam benign. CT and US okay. labs okay. -no acute surgical intervention planned -diet as tolerated -appreciate GI input. -discharge thank you for this consultation. will follow with recs. Silver Mccormack Dec 07, 2017 13:30
--- NOTE | 2017-12-07 13:36 | GI Progress Note ---
Assessment/Plan Problems: (1) Intractable abdominal pain ICD Codes: R10.9 - Unspecified abdominal pain SNOMED: 31506257, 954880563 (2) GERD (gastroesophageal reflux disease) ICD Codes: K21.9 - Gastro-esophageal reflux disease without esophagitis SNOMED: 672122499 (3) History of laparoscopic cholecystectomy ICD Codes: Z90.49 - Acquired absence of other specified parts of digestive tract SNOMED: 030821943 Status: stable Status Narrative Discussed with Dr. Krueger. Assessment/Plan abdominal U/S reviewed >> -Surgically absent gallbladder >> most likely the cause of CBD dilation -Mildly ectatic common bile duct. CTAP negative no evidence of biliary obstruction symptomatic treatment adv diet as tolerated pain mgmt ppi zofran prn bowel regime outpatient GI procedures UPDATE Pt was advanced to regular diet, had immediate pain after PO intake and complaint of nausea. will scheduled for EGD tomorrow maintain CLD, NPO @ [place]. hold all blood thinners Subjective Gastrointestinal/Abdominal: Reports: no symptoms Objective Last 24 Hour Vital Signs Date Time Temp Pulse Resp B/P (MAP) Pulse Ox O2 Delivery O2 Flow Rate FiO2 12/07/17 13:24 97.3 12/07/17 12:24 97.3 63 18 131/77 (95) 97.3 12/07/17 09:29 Room Air 12/07/17 04:00 98.6 61 20 129/73 (91) 97 98.6 12/07/17 00:00 97.8 64 18 123/68 (86) 97 97.8 12/06/17 21:00 98.1 67 18 121/73 (89) 98 98.1 12/06/17 21:00 Room Air Intake and Output 12/06/17 12/07/17 19:00 07:00 Intake Total 282.58 ml 1275.0 ml Balance 282.58 ml 1275.0 ml Intake Oral 200 ml 360 ml IV Total 82.58 ml 915.0 ml # Voids 1 2 Laboratory Tests Test 12/07/17 09:05 White Blood Count 3.7 K/UL (4.8-10.8) L Red Blood Count 4.45 M/UL (4.20-5.40) Hemoglobin 12.6 G/DL (12.0-16.0) Hematocrit 38.4 % (37.0-47.0) Mean Corpuscular Volume 86 FL (80-99) Mean Corpuscular Hemoglobin 28.3 PG (27.0-31.0) Mean Corpuscular Hemoglobin Concent 32.8 G/DL (32.0-36.0) Red Cell Distribution Width 11.3 % (11.6-14.8) L Platelet Count 166 K/UL (150-450) Mean Platelet Volume 9.3 FL (6.5-10.1) Neutrophils (%) (Auto) 53.2 % (45.0-75.0) Lymphocytes (%) (Auto) 36.9 % (20.0-45.0) Monocytes (%) (Auto) 6.8 % (1.0-10.0) Eosinophils (%) (Auto) 2.0 % (0.0-3.0) Basophils (%) (Auto) 1.1 % (0.0-2.0) Sodium Level 138 MMOL/L (136-145) Potassium Level 4.3 MMOL/L (3.5-5.1) Chloride Level 103 MMOL/L (98-107) Carbon Dioxide Level 29 MMOL/L (21-32) Anion Gap 6 mmol/L (5-15) Blood Urea Nitrogen 8 mg/dL (7-18) Creatinine 0.8 MG/DL (0.55-1.30) Estimat Glomerular Filtration Rate > 60 mL/min (>60) Glucose Level 207 MG/DL (74-106) H Calcium Level 8.4 MG/DL (8.5-10.1) L Height (Feet): 5 Height (Inches): 5.00 Weight (Pounds): 172 General Appearance: WD/WN, no apparent distress, alert Cardiovascular: normal rate Respiratory/Chest: normal breath sounds, no respiratory distress Abdominal Exam: normal bowel sounds, non tender, soft Extremities: normal range of motion, non-tender Jenelle Herrera NP Dec 07, 2017 13:36
[2017-12-07 16:00] VITALS: BP 132/79
[2017-12-07 19:53] VITALS: BP 133/71
[2017-12-08] VITALS (11 sets, daily range): BP systolic 124–140; BP diastolic 56–75
[2017-12-08] MEDS: Piperacillin/Tazobactam 3.375 GM in D5W 110 ML IVPB SCH ×3 (02:10→19:08)
[2017-12-08] MEDS: Morphine Sulfate 2mg/ml Inj IVP PRN ×2 (02:15→16:45)
[2017-12-08 07:35] LABS: BASOPHILS % (AUTO) 0.4 % (0.0-2.0); EOSINOPHILS % (AUTO) 0.4 % (0.0-3.0); HEMATOCRIT 40.8 % (37.0-47.0); HEMOGLOBIN 13.7 G/DL (12.0-16.0); LYMPHOCYTES % (AUTO) 24.7 % (20.0-45.0); MEAN CORPUSCULAR VOLUME 87 FL (80-99); MONOCYTES % (AUTO) 4.4 % (1.0-10.0); PLATELET COUNT 180 K/UL (150-450); RED BLOOD COUNT 4.69 M/UL (4.20-5.40); RED CELL DISTRIBUTION WIDTH 11.6 % (11.6-14.8); WHITE BLOOD COUNT 7.9 K/UL (4.8-10.8)
[2017-12-08 08:00] LABS: ANION GAP 12 mmol/L (5-15); BLOOD UREA NITROGEN 8 mg/dL (7-18); CALCIUM 8.5 MG/DL (8.5-10.1); CARBON DIOXIDE 21 MMOL/L (21-32); CHLORIDE 102 MMOL/L (98-107); CREATININE 0.7 MG/DL (0.55-1.30); POTASSIUM 3.7 MMOL/L (3.5-5.1); SODIUM 135 MMOL/L (136-145)
--- NOTE | 2017-12-08 08:03 | Anethesia Preoperative Eval ---
Anesthesia Pre-op PMH/ROS General Date of Evaluation: Dec 08, 2017 Anesthesiologist: Herman ASA Score: ASA 2 Mallampati Score Class I : Soft palate, uvula, fauces, pillars visible Class II: Soft palate, uvula, fauces visible Class III: Soft palate, base of uvula visible Class IV: Only hard plate visible Mallampati Classification: Class II Surgeon: Nell Diagnosis: Intractable abdominal pain Surgical Procedure: EGD Anesthesia History: none Family History: no anesthesia problems Allergies: Coded Allergies: No Known Allergies (Unverified , 11/17/17) Medications: see eMAR Past Medical History Cardiovascular: Denies: HTN, CAD, IA, valve dz, arrhythmia, other Pulmonary: Denies: asthma, COPD, OSMIN, other Gastrointestinal/Genitourinary: Reports: other - intractable abdominal pain; Denies: GERD, CRI, ESRD Neurologic/Psychiatric: Denies: dementia, CVA, depression/anxiety, TIA, other Endocrine: Reports: DM; Denies: hypothyroidism, steroids, other HEENT: Denies: cataract (L), cataract (R), glaucoma, ATKA (L), ATKA (R), other Hematology/Immune: Denies: anemia, DVT, bleeding disorder, other Musculoskeletal/Integumentary: Denies: OA, RA, DJD, DDD, edema, other PSxH Narrative: lap robb Anesthesia Pre-op Phys. Exam Physician Exam Last Vital Signs Date Time Temp Pulse Resp B/P (MAP) Pulse Ox O2 Delivery O2 Flow Rate FiO2 12/08/17 04:00 97.5 63 20 131/72 (91) 97 97.5 12/07/17 21:00 Room Air Constitutional: NAD Cardiovascular: RRR Respiratory: CTA Airway Exam Mallampati Score: Class II MO: full ROM: full Teeth: intact Anesthesia Pre-op A/P Labs Hematology Test 12/07/17 09:05 12/08/17 06:35 White Blood Count 3.7 K/UL (4.8-10.8) L 7.9 K/UL (4.8-10.8) # Red Blood Count 4.45 M/UL (4.20-5.40) 4.69 M/UL (4.20-5.40) Hemoglobin 12.6 G/DL (12.0-16.0) 13.7 G/DL (12.0-16.0) Hematocrit 38.4 % (37.0-47.0) 40.8 % (37.0-47.0) Mean Corpuscular Volume 86 FL (80-99) 87 FL (80-99) Mean Corpuscular Hemoglobin 28.3 PG (27.0-31.0) 29.1 PG (27.0-31.0) Mean Corpuscular Hemoglobin Concent 32.8 G/DL (32.0-36.0) 33.5 G/DL (32.0-36.0) Red Cell Distribution Width 11.3 % (11.6-14.8) L 11.6 % (11.6-14.8) Platelet Count 166 K/UL (150-450) 180 K/UL (150-450) Mean Platelet Volume 9.3 FL (6.5-10.1) 9.2 FL (6.5-10.1) Neutrophils (%) (Auto) 53.2 % (45.0-75.0) 70.0 % (45.0-75.0) Lymphocytes (%) (Auto) 36.9 % (20.0-45.0) 24.7 % (20.0-45.0) Monocytes (%) (Auto) 6.8 % (1.0-10.0) 4.4 % (1.0-10.0) Eosinophils (%) (Auto) 2.0 % (0.0-3.0) 0.4 % (0.0-3.0) Basophils (%) (Auto) 1.1 % (0.0-2.0) 0.4 % (0.0-2.0) Coagulation Test 12/08/17 06:35 Prothrombin Time 10.7 SEC (9.30-11.50) Prothromb Time International Ratio 1.0 (0.9-1.1) Activated Partial Thromboplast Time 22 SEC (23-33) L Chemistry Test 12/07/17 09:05 12/08/17 06:35 Sodium Level 138 MMOL/L (136-145) 135 MMOL/L (136-145) L Potassium Level 4.3 MMOL/L (3.5-5.1) 3.7 MMOL/L (3.5-5.1) Chloride Level 103 MMOL/L (98-107) 102 MMOL/L (98-107) Carbon Dioxide Level 29 MMOL/L (21-32) 21 MMOL/L (21-32) Anion Gap 6 mmol/L (5-15) 12 mmol/L (5-15) Blood Urea Nitrogen 8 mg/dL (7-18) 8 mg/dL (7-18) Creatinine 0.8 MG/DL (0.55-1.30) 0.7 MG/DL (0.55-1.30) Estimat Glomerular Filtration Rate > 60 mL/min (>60) > 60 mL/min (>60) Glucose Level 207 MG/DL (74-106) H 160 MG/DL (74-106) H Calcium Level 8.4 MG/DL (8.5-10.1) L 8.5 MG/DL (8.5-10.1) Studies Pre-op Studies: EKG - sr Risk Assessment & Plan Assessment: ASA II Plan: MAC Status Change Before Surgery: No Pre-Antibiotics Drug: N/A Rashida Alegria MD Dec 08, 2017 08:03
[2017-12-08] MEDS: Hydromorphone 0.5mg/0.5ml inj IVP PRN (08:34)
--- NOTE | 2017-12-08 09:31 | General Surgery Progress Note ---
General Surgery-Progress Note Subjective Additional Comments acute pain after diet was advanced. made npo with plans for EGD Objective Last 24 Hour Vital Signs Date Time Temp Pulse Resp B/P (MAP) Pulse Ox O2 Delivery O2 Flow Rate FiO2 12/08/17 04:00 97.5 63 20 131/72 (91) 97 97.5 12/08/17 00:00 97.7 65 20 140/75 (96) 94 97.7 12/07/17 21:00 Room Air 12/07/17 19:53 97.3 64 20 133/71 (91) 96 97.3 12/07/17 16:00 98.8 76 18 132/79 (96) 98.8 12/07/17 15:48 97.3 12/07/17 15:18 97.3 12/07/17 13:54 97.3 12/07/17 13:24 97.3 12/07/17 12:24 97.3 63 18 131/77 (95) 97.3 I&O Intake and Output 12/07/17 12/08/17 19:00 07:00 Intake Total 1160.0 ml Balance 1160.0 ml IV Total 560.0 ml Other 600 ml # Voids 3 2 # Bowel Movements 1 Drains: none Cardiovascular: RSR Respiratory: clear Abdomen: soft, tenderness, present bowel sounds Extremities: no cyanosis Laboratory Tests Test 12/08/17 06:35 White Blood Count 7.9 K/UL (4.8-10.8) # Red Blood Count 4.69 M/UL (4.20-5.40) Hemoglobin 13.7 G/DL (12.0-16.0) Hematocrit 40.8 % (37.0-47.0) Mean Corpuscular Volume 87 FL (80-99) Mean Corpuscular Hemoglobin 29.1 PG (27.0-31.0) Mean Corpuscular Hemoglobin Concent 33.5 G/DL (32.0-36.0) Red Cell Distribution Width 11.6 % (11.6-14.8) Platelet Count 180 K/UL (150-450) Mean Platelet Volume 9.2 FL (6.5-10.1) Neutrophils (%) (Auto) 70.0 % (45.0-75.0) Lymphocytes (%) (Auto) 24.7 % (20.0-45.0) Monocytes (%) (Auto) 4.4 % (1.0-10.0) Eosinophils (%) (Auto) 0.4 % (0.0-3.0) Basophils (%) (Auto) 0.4 % (0.0-2.0) Prothrombin Time 10.7 SEC (9.30-11.50) Prothromb Time International Ratio 1.0 (0.9-1.1) Activated Partial Thromboplast Time 22 SEC (23-33) L Sodium Level 135 MMOL/L (136-145) L Potassium Level 3.7 MMOL/L (3.5-5.1) Chloride Level 102 MMOL/L (98-107) Carbon Dioxide Level 21 MMOL/L (21-32) Anion Gap 12 mmol/L (5-15) Blood Urea Nitrogen 8 mg/dL (7-18) Creatinine 0.7 MG/DL (0.55-1.30) Estimat Glomerular Filtration Rate > 60 mL/min (>60) Glucose Level 160 MG/DL (74-106) H Calcium Level 8.5 MG/DL (8.5-10.1) Plan Problems: (1) Intractable abdominal pain Assessment & Plan: 52F with RUQ/ epigastric pain. no evidence of retained stone or biliary nature. possible gastritis? on exam benign. CT and US okay. labs okay. -no acute surgical intervention planned -diet as tolerated -appreciate GI input. -EGD today thank you for this consultation. will follow with recs. Silver Mccormack Dec 08, 2017 09:31
[2017-12-08] MEDS ORDERED: LR 1000ml 1,000 ML IVLG SCH (10:26)
--- NOTE | 2017-12-08 10:29 | Immediate Post-Op Evaluation ---
Immediate Post-Op Evalulation Immediate Post-Op Evalulation Procedure: EGD Date of Evaluation: Dec 08, 2017 Time of Evaluation: 10:52 IV Fluids: 400 Blood Products: 0 Estimated Blood Loss: 0 Urinary Output: 0 Blood Pressure Systolic: 124 Blood Pressure Diastolic: 68 Pulse Rate: 58 Respiratory Rate: 16 O2 Sat by Pulse Oximetry: 99 Temperature (Fahrenheit): 97.7 Pain Score (1-10): 0 Nausea: No Vomiting: No Complications 0 Patient Status: awake, reacts, patent, none Hydration Status: adequate Drug: N/A Rashida Alegria MD Dec 08, 2017 10:29
--- NOTE | 2017-12-08 10:29 | 48 Hour Post Anesthesia Eval ---
Post Anesthesia Evaluation Procedure: EGD Date of Evaluation: Dec 08, 2017 Airway: patent Nausea: No Vomiting: No Pain Intensity: 0 Hydration Status: adequate Cardiopulmonary Status: at baseline Mental Status/LOC: patient returned to baseline Post-Anesthesia Complications: 0 Follow-up care needed: ready to discharge Rashida Alegria MD Dec 08, 2017 10:29
[2017-12-08] MEDS ORDERED: fentaNYL 100 mcg/2 mL IV PRN (10:30)
[2017-12-08] MEDS ORDERED: DiphenhydrAMINE 50mg/ml Inj IVP PRN (10:30)
[2017-12-08] MEDS ORDERED: Propofol 200mg/20ml IV ONE (10:30)
[2017-12-08] MEDS ORDERED: LR 1000ml ONE (10:30)
[2017-12-08] MEDS ORDERED: Labetalol 5mg/ml 20ml vial IV PRN (10:30)
[2017-12-08] MEDS ORDERED: Lidocaine 1% MPF 10mg/ml 5ml ONE (10:30)
[2017-12-08] MEDS ORDERED: Hydromorphone 0.5mg/0.5ml inj IVP PRN (10:30)
--- NOTE | 2017-12-08 10:32 | Pre-Procedure Note/Attestation ---
Pre-Procedure Note/Attestation Complete Prior to Procedure Planned Procedure: not applicable Procedure Narrative: endoscopy Indications for Procedure Pre-Operative Diagnosis: abd pain Attestation I attest that I discussed the nature of the procedure; its benefits; risks and complications; and alternatives (and the risks and benefits of such alternatives ), prior to the procedure, with the patient (or the patient's legal sales representative jewelry). I attest that, if there was a reasonable possibility of needing a blood transfusion, the patient (or the patient's legal sales representative jewelry) was given the [facility] standardized written summary, pursuant to the Ari[employer] Blood Safety Act ([place] Health and Safety Code # 1645, as amended). I attest that I re-evaluated the patient just prior to the surgery and that there has been no change in the patient's H&P, except as documented below: Carrington Camejo MD Dec 08, 2017 10:32
--- NOTE | 2017-12-08 10:32 | General Progress Note ---
Assessment/Plan Assessment/Plan Assessment - epigastric abd pain - s/p Ana Recommendations - EGD today. - laxative POST PROCEDURE ADDENDUM EGD: 2 cm incidental hiatal hernia No findings to explain epigastric pain Random biopsies of duodenum, antrum, lower esoph and uper esoph sent to pathology Subjective Allergies: Coded Allergies: No Known Allergies (Unverified , 11/17/17) Subjective Seen in GI lab still with epigastric pain worse with PO and with movement no BM x 3 days Objective Last 24 Hour Vital Signs Date Time Temp Pulse Resp B/P (MAP) Pulse Ox O2 Delivery O2 Flow Rate FiO2 12/08/17 08:00 97.1 76 16 126/56 (79) 94 97.1 12/08/17 04:00 97.5 63 20 131/72 (91) 97 97.5 12/08/17 00:00 97.7 65 20 140/75 (96) 94 97.7 12/07/17 21:00 Room Air 12/07/17 19:53 97.3 64 20 133/71 (91) 96 97.3 12/07/17 16:00 98.8 76 18 132/79 (96) 98.8 12/07/17 15:48 97.3 12/07/17 15:18 97.3 12/07/17 13:54 97.3 12/07/17 13:24 97.3 12/07/17 12:24 97.3 63 18 131/77 (95) 97.3 Intake and Output 12/07/17 12/08/17 19:00 07:00 Intake Total 1160.0 ml Balance 1160.0 ml IV Total 560.0 ml Other 600 ml # Voids 3 2 # Bowel Movements 1 Laboratory Tests 12/08/17 06:35: White Blood Count 7.9#, Red Blood Count 4.69, Hemoglobin 13.7, Hematocrit 40.8, Mean Corpuscular Volume 87, Mean Corpuscular Hemoglobin 29.1, Mean Corpuscular Hemoglobin Concent 33.5, Red Cell Distribution Width 11.6, Platelet Count 180, Mean Platelet Volume 9.2, Neutrophils (%) (Auto) 70.0, Lymphocytes (%) (Auto) 24.7, Monocytes (%) (Auto) 4.4, Eosinophils (%) (Auto) 0.4, Basophils (%) (Auto ) 0.4, Prothrombin Time 10.7, Prothromb Time International Ratio 1.0, Activated Partial Thromboplast Time 22L, Sodium Level 135L, Potassium Level 3.7, Chloride Level 102, Carbon Dioxide Level 21, Anion Gap 12, Blood Urea Nitrogen 8, Creatinine 0.7, Estimat Glomerular Filtration Rate > 60, Glucose Level 160H, Calcium Level 8.5 Height (Feet): 5 Height (Inches): 5.00 Weight (Pounds): 172 Objective WDWN NCAT supple CTA RRR Abd Soft ND, (+) Epigastric TTP no edema Carrington Camejo MD Dec 08, 2017 10:31
--- NOTE | 2017-12-08 11:21 | Diagnostic Imaging Report ---
Indication: Abdominal pain Technique: Supine view of the abdomen Comparison: none Findings: . Cholecystectomy clips. Bowel gas pattern is unremarkable. No unusual masses or calcifications Impression: No acute process This agrees with the preliminary interpretation provided overnight by [facility] teleradiology service.
--- NOTE | 2017-12-08 18:15 | Operative Note - Dictated ---
DATE OF OPERATION: 12/08/2017 GASTROENTEROLOGY PROCEDURE REPORT PROCEDURE: Upper gastrointestinal endoscopy with biopsy. SURGEON: Carrington Camejo M.D. ANESTHESIA: Please see the separate report. PRE-ENDOSCOPIC DIAGNOSIS: Abdominal pain. POST-ENDOSCOPIC DIAGNOSIS: A 2-cm incidental hiatal hernia. DESCRIPTION OF PROCEDURE: The procedure, its risks, indications, alternatives, and possible complications were explained and informed consent was obtained. The patient was then sedated in the left lateral decubitus position and a diagnostic upper endoscope was introduced through the oropharynx and advanced to the duodenum. The endoscope was then gradually withdrawn and the mucosa examined carefully. Examination of the upper gastrointestinal mucosa revealed an incidental 2-cm hiatal hernia. Random biopsies of duodenum, antrum, lower esophagus, and mid esophagus were sent to pathology for review. The endoscope was removed. The patient was sent to recovery in good condition. COMPLICATIONS: None. RECOMMENDATIONS: 1. Follow up biopsy results. 2. Resume oral diet. Carrington Camejo M.D. DR: NAYANA JOB#: [id number] CC:
--- NOTE | 2017-12-08 18:39 | Consultation ---
Consult Note Consult Note Please see consult dictation Gemma Caputo MD Dec 08, 2017 18:39
[2017-12-09] VITALS: BP 115/69
--- NOTE | 2017-12-09 00:30 | Consultation ---
DATE OF CONSULTATION: 12/08/2017 CONSULTING PHYSICIAN: Gemma Caputo M.D. HISTORY: The patient is a 52-year-old female with onset diabetes of approximately two years duration, referred for ophthalmology evaluation. She has noted longstanding blurriness of vision in both eyes with some fluctuations. There has been no recent change. She denies any fluids or flashes or any pain. PAST OCULAR HISTORY: Unremarkable. PHYSICAL EXAMINATION: HEENT: On examination, visual acuity was 20/50 with near card. She, however, did not have her glasses with her. External examination was unremarkable. Ocular movements were full on both sides. The pupils were equally reactive to light. Intraocular pressure was within normal. Conjunctivae was white and clear. Cornea was clear. Anterior chamber was formed. The dilated funduscopy was deferred. IMPRESSION: Refractive error, both eyes and recent-onset diabetes. RECOMMENDATION/PLAN: Situation was discussed in detail with the patient. A followup evaluation with general ophthalmology was recommended upon discharge home. 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 Gemma Caputo M.D. DR: MAURA JOB#: [id number] CC:
[2017-12-09] MEDS: Morphine Sulfate 2mg/ml Inj IVP PRN ×3 (01:16→14:02)
[2017-12-09] MEDS: Piperacillin/Tazobactam 3.375 GM in D5W 110 ML IVPB SCH ×2 (02:28→10:41)
[2017-12-09 04:00] VITALS: BP 116/67
[2017-12-09 08:00] VITALS: BP 120/65
--- NOTE | 2017-12-09 09:42 | Pulmonology Progress Note ---
Assessment/Plan Assessment/Plan IMPRESSION: 1. Right upper quadrant pain, possible choledocholithiasis. Now resolved. 2. Probable previous cholecystectomy. 3. Diabetes mellitus. 4. S/p EGD DISCUSSION: Will advance diet; dc home if diet tolerated. Subjective Interval Events: S/p EGD Constitutional: Reports: no symptoms HEENT: Repors: no symptoms Respiratory: Reports: no symptoms Cardiovascular: Reports: no symptoms Gastrointestinal/Abdominal: Reports: no symptoms Genitourinary: Reports: no symptoms Allergies: Coded Allergies: No Known Allergies (Unverified , 11/17/17) Objective Last 24 Hour Vital Signs Date Time Temp Pulse Resp B/P (MAP) Pulse Ox O2 Delivery O2 Flow Rate FiO2 12/09/17 04:00 99.1 71 17 116/67 (83) 94 99.1 12/09/17 00:00 99.0 84 18 115/69 (84) 93 99.0 12/08/17 21:00 Room Air 12/08/17 20:00 99.3 71 16 130/70 (90) 94 99.3 12/08/17 16:00 98.2 66 18 125/66 (85) 94 98.2 12/08/17 12:00 98.1 65 18 132/61 (84) 94 98.1 12/08/17 11:15 98.0 58 15 127/71 100 Nasal Cannula 3 98.0 12/08/17 11:05 58 13 132/72 100 Nasal Cannula 3 12/08/17 10:57 57 15 132/71 100 Nasal Cannula 3 12/08/17 10:52 57 12 130/69 100 Nasal Cannula 3 12/08/17 10:49 207.9 58 16 99 12/08/17 10:47 97.7 58 16 124/68 99 Nasal Cannula 3 97.7 Intake and Output 12/08/17 12/09/17 19:00 07:00 Intake Total 860.0 ml 720.0 ml Balance 860.0 ml 720.0 ml Intake Oral 200 ml IV Total 860.0 ml 520.0 ml # Voids 2 3 General Appearance: no acute distress HEENT: normocephalic Respiratory/Chest: chest wall non-tender, lungs clear Cardiovascular: normal peripheral pulses, normal rate Abdomen: normal bowel sounds Current Medications Medications (Trade) Dose Ordered Sig/Lee Route PRN Reason Start Time Stop Time Status Last Admin Dose Admin Hydromorphone HCl (Dilaudid) 1 mg Q4H PRN IVP Severe Pain (Pain Scale 7-10) 12/06/17 03:30 12/13/17 03:29 12/08/17 08:34 Iopamidol (Isovue-300 100ml) 100 ml NOW PRN INJ Radiology Procedure 12/05/17 21:30 Morphine Sulfate (Morphine Sulfate) 2 mg Q4H PRN IVP Moderate Pain (Pain Scale 4-6) 12/06/17 04:30 12/13/17 04:29 12/09/17 09:28 Ondansetron HCl (Zofran) 4 mg Q6H PRN IVP Nausea & Vomiting 12/06/17 04:30 01/05/18 04:29 12/07/17 18:29 Pantoprazole (Protonix) 40 mg ACBREAKFAST ORAL 12/06/17 15:00 01/05/18 14:59 12/09/17 05:55 Piperacillin Sod/ Tazobactam Sod 3.375 gm/Dextrose 110 ml @ 27.5 mls/hr Q8H IVPB 12/06/17 11:00 12/13/17 10:59 12/09/17 02:28 Sodium Chloride 1,000 ml @ 75 mls/hr [id number] IV 12/06/17 02:30 01/05/18 02:29 12/08/17 20:11 Jeff Barney MD Dec 09, 2017 09:42
[2017-12-09] MEDS ORDERED: Sorbitol Solution UD 30ml ORAL ONE (11:30)
--- NOTE | 2017-12-09 11:41 | General Surgery Progress Note ---
General Surgery-Progress Note Subjective Additional Comments no acute events. EGD results pending biopsy. otherwise well Objective Last 24 Hour Vital Signs Date Time Temp Pulse Resp B/P (MAP) Pulse Ox O2 Delivery O2 Flow Rate FiO2 12/09/17 09:00 Room Air 12/09/17 08:00 99.5 88 20 120/65 (83) 92 99.5 12/09/17 04:00 99.1 71 17 116/67 (83) 94 99.1 12/09/17 00:00 99.0 84 18 115/69 (84) 93 99.0 12/08/17 21:00 Room Air 12/08/17 20:00 99.3 71 16 130/70 (90) 94 99.3 12/08/17 16:00 98.2 66 18 125/66 (85) 94 98.2 12/08/17 12:00 98.1 65 18 132/61 (84) 94 98.1 I&O Intake and Output 12/08/17 12/09/17 19:00 07:00 Intake Total 860.0 ml 720.0 ml Balance 860.0 ml 720.0 ml Intake Oral 200 ml IV Total 860.0 ml 520.0 ml # Voids 2 3 Drains: none Cardiovascular: RSR Respiratory: clear Abdomen: soft, non-tender, present bowel sounds Extremities: no cyanosis Plan Problems: (1) Intractable abdominal pain Assessment & Plan: 52F with RUQ/ epigastric pain. no evidence of retained stone or biliary nature. possible gastritis? on exam benign. CT and US okay. labs okay. -no acute surgical intervention planned -diet as tolerated -appreciate GI input. -okay to d/c home from surgical standpoint thank you for this consultation. will follow with recs. Silver Mccormack Dec 09, 2017 11:41
[2017-12-09 12:00] VITALS: BP 134/69
[2017-12-09] MEDS ORDERED: Magnesium Citrate Liq Btl ORAL ONE (14:00)
[2017-12-09] MEDS ORDERED: GI Cocktail 50ml ORAL PRN (14:15)
[2017-12-09] MEDS ORDERED: Fleet's Enema 133ml RECTAL SCH (14:30)
--- NOTE | 2017-12-09 15:49 | GI Progress Note ---
Assessment/Plan Problems: (1) Intractable abdominal pain ICD Codes: R10.9 - Unspecified abdominal pain SNOMED: 56941548, 509927948 (2) GERD (gastroesophageal reflux disease) ICD Codes: K21.9 - Gastro-esophageal reflux disease without esophagitis SNOMED: 799078890 (3) History of laparoscopic cholecystectomy ICD Codes: Z90.49 - Acquired absence of other specified parts of digestive tract SNOMED: 666241887 Status: unchanged Status Narrative Discussed with Dr. Krueger. Assessment/Plan abdominal U/S reviewed >> -Surgically absent gallbladder >> most likely the cause of CBD dilation -Mildly ectatic common bile duct. CTAP negative no evidence of biliary obstruction s/p EGD >> 2cm anemia work up, otherwise unremarkable symptomatic treatment adv diet as tolerated pain mgmt >> GI cocktail prn ppi zofran prn bowel regime fleets x 1 outpatient colonoscopy The patient was seen and examined at bedside and all new and available data was reviewed in the patients chart. I agree with the above findings, impression and plan. (Patient seen earlier today. Signature stamp does not reflect patient encounter time.). - Everett Krueger MD Subjective Subjective pt still has pain after PO intake Objective Last 24 Hour Vital Signs Date Time Temp Pulse Resp B/P (MAP) Pulse Ox O2 Delivery O2 Flow Rate FiO2 12/09/17 12:00 100.1 77 20 134/69 (90) 92 100.1 12/09/17 09:00 Room Air 12/09/17 08:00 99.5 88 20 120/65 (83) 92 99.5 12/09/17 04:00 99.1 71 17 116/67 (83) 94 99.1 12/09/17 00:00 99.0 84 18 115/69 (84) 93 99.0 12/08/17 21:00 Room Air 12/08/17 20:00 99.3 71 16 130/70 (90) 94 99.3 12/08/17 16:00 98.2 66 18 125/66 (85) 94 98.2 Intake and Output 12/08/17 12/09/17 19:00 07:00 Intake Total 860.0 ml 720.0 ml Balance 860.0 ml 720.0 ml Intake Oral 200 ml IV Total 860.0 ml 520.0 ml # Voids 2 3 Height (Feet): 5 Height (Inches): 5.00 Weight (Pounds): 172 General Appearance: WD/WN, no apparent distress, alert Cardiovascular: normal rate Respiratory/Chest: normal breath sounds, no respiratory distress Abdominal Exam: normal bowel sounds, non tender, soft Extremities: normal range of motion, non-tender Jenelle Herrera NP Dec 09, 2017 15:49
[2017-12-09 16:00] VITALS: BP 125/71
--- NOTE | 2017-12-12 12:38 | Discharge Summary ---
Discharge Summary Discharge Summary _ DATE OF ADMISSION: 12/05/2017 DATE OF DISCHARGE: 12/09/2017 REASON FOR ADMISSION: 52 years old female with past medical history of recently diagnosed diabetes, presented to emergency department with right upper quadrant and epigastric pain. Patient had a history of cholecystectomy years ago. Patient was found to have evidence of possible common bile duct stone. Patient exhibited no leukocytosis, stable hemoglobin and hematocrit. Abdominal ultrasound revealed mildly enlarged fatty liver.. Surgically absent gallbladder. Common bile duct with mild ectasia. CT of the abdomen and pelvis revealed no acute abnormality. Fatty liver. Patient admitted with diagnoses of right upper quadrant abdominal pain, possible choledocholithiasis, history of previous cholecystectomy, diabetes mellitus. CONSULTANTS: GI specialist Dr. Krueger surgery Dr. Mcocrmack spreader box operator Dr. Caputo [facility] COURSE: Patient admitted. Surgery and GI consults were requested. Patient was kept nothing by mouth and started on intravenous fluids. Pain management was provided , antiemetics provided as needed . Patient started on empiric antibiotics. Per surgeon ,no evidence of retained stone of biliary issues, possible gastritis. Exam was benign. Surgeon personally reviewed imaging and concluded that no surgical intervention necessary at this time. GI closely followed. Per GI, surgically absent gallbladder was likely the cause of biliary duct dilatation. No evidence of biliary obstruction on CAT scan of the abdomen and pelvis. Patient undergone EGD with biopsy which revealed incidental finding of 2 cm hiatal hernia. Biopsy of duodenum revealed no diagnostic abnormality, benign small bowel mucosa. Biopsy of the stomach antrum revealed mild chronic gastritis but was negative for Helicobacter infection. Biopsy of the lower and mid esophagus revealed benign i squamous mucosa with no diagnostic abnormality. Patient started on diet as tolerated , and patient was able to tolerate diet. Antiemetic provided as needed. Pain management was addressed . GI cocktail provided as needed Patient was on PPI . Bowel regimen instituted. Patient clinically improved Blood sugar was managed with sliding scale of insulin. Patient complaining of poor vision. Ophthalmology consult was requested . According to spreader box operator ,patient has refractory error. However patient did not have her glasses . Surgeon recommended outpatient follow-up with the patient primary spreader box operator for further evaluation . Patient was stable for discharge FINAL DIAGNOSES: Right upper quadrant pain Gastritis History of previous cholecystectomy Diabetes mellitus s/p EGD DISCHARGE MEDICATIONS: See Medication Reconciliation list. DISCHARGE INSTRUCTIONS: Patient was discharged home follow-up with primary care provider and spreader box operator I have been assigned to dictate discharge summary for this account. I was not involved in the patient's management. Stacey Morton NP Dec 12, 2017 12:38
== END 2017-12-09 17:20 | disposition home or self-care (01) | DRG 241 ==
LOC: EMR 20:55 → 4W 22:45 → EDBEDREQ 23:10
PROC: 0DB78ZX Excision of Stomach, Pylorus, Via Natural or Artificial Opening Endoscopic, Diagnostic (ICD-10-PCS; 2017-12-08)
PROC: 0DB28ZX Excision of Middle Esophagus, Via Natural or Artificial Opening Endoscopic, Diagnostic (ICD-10-PCS; 2017-12-08)
PROC: 0DB38ZX Excision of Lower Esophagus, Via Natural or Artificial Opening Endoscopic, Diagnostic (ICD-10-PCS; 2017-12-08)
PROC: 0DB98ZX Excision of Duodenum, Via Natural or Artificial Opening Endoscopic, Diagnostic (ICD-10-PCS; principal; 2017-12-08 10:36)
DX: K29.70 Gastritis, unspecified, without bleeding (principal); K76.0 Fatty (change of) liver, not elsewhere classified; E11.9 Type 2 diabetes mellitus without complications; Z90.49 Acquired absence of other specified parts of digestive tract; K21.9 Gastro-esophageal reflux disease without esophagitis; H52.7 Unspecified disorder of refraction
CPT/HCPCS: 36415; 74018; 74177; 76700; 76705; 80048; 80053; 81003; 83690; 85025; 85610; 85730; 94003; 94150; J2405